=== PATIENT | male | born 1990 | race African-American/Black ===

== ENCOUNTER 2019-08-12 06:52 | Emergency (ER) | payer OTHER ==
[~2019-08-12] VITALS: Ht 175.3 cm; Wt 96.2 kg
[2019-08-12 06:57] VITALS: BP 147/74
--- NOTE | 2019-08-12 06:57 | NUR ---
PT AMBULATED TO BED #11
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
[2019-08-12] MEDS ORDERED: IBUPROFEN 800 MG TAB PO ONE (07:25)
--- NOTE | 2019-08-12 07:31 | NUR ---
PATIENT LEFT FOR X-RAY VIA WHEELCHAIR.
--- NOTE | 2019-08-12 07:59 | NUR ---
Dr. Bryant is re-evaluating the patient at bedside.
[2019-08-12 08:05] VITALS: BP 147/74
== END 2019-08-12 08:05 | disposition home or self-care (01) ==
LOC: MED 06:52
DX: S16.1XXA Strain of muscle, fascia and tendon at neck level, initial encounter (principal); S39.012A Strain of muscle, fascia and tendon of lower back, initial encounter; V49.69XA Unspecified car occupant injured in collision with other motor vehicles in traffic accident, initial encounter; Y93.89 Activity, other specified; Y92.89 Other specified places as the place of occurrence of the external cause; Y99.8 Other external cause status; R03.0 Elevated blood-pressure reading, without diagnosis of hypertension
CPT/HCPCS: 72100; 99283